=== PATIENT | female | born 1975 | race Caucasian/White ===

== ENCOUNTER 2017-02-27 11:30 | Emergency (ER) | payer OTHER ==
[~2017-02-27] VITALS: Ht 175.3 cm; Wt 87.9 kg
[~2017-02-27 11:30] MED LIST: ONDA4TAB7 PO
[2017-02-27] MEDS ORDERED: ALBUTEROL/IPRATROPIUM 2.5MG/0.5MG, 3 ML ONE ×2 (12:03)
[2017-02-27] MEDS: ALBUTEROL/IPRATROPIUM 2.5MG/0.5MG, 3 ML NPPB SCH ×2 (12:25→12:26)
[2017-02-27 15:12] VITALS: BP 121/67
== END 2017-02-27 15:14 | disposition home or self-care (01) ==
LOC: ED 14:43
DX: J45.909 Unspecified asthma, uncomplicated (principal); J20.8 Acute bronchitis due to other specified organisms
CPT/HCPCS: 71020; 94640; 99284; J7512; J7620

== ENCOUNTER 2017-05-05 11:50 | Emergency (ER) | payer OTHER ==
[~2017-05-05] VITALS: Ht 175.3 cm; Wt 89.0 kg
[2017-05-05 13:20] LABS: HEMATOCRIT 41.7 % (34.6-47.8); HEMOGLOBIN 14.3 g/dL (11.7-16.4); WHITE BLOOD COUNT 7.3 x10^3/uL (3.4-10)
[2017-05-05 13:32] LABS: BLOOD UREA NITROGEN 13 mg/dL (7-18)
[2017-05-05] MEDS ORDERED: ALBU2.5V11 NEB (13:35)
[2017-05-05 13:36] VITALS: BP 112/65
[2017-05-05 13:37] LABS: ASPARTATE AMINO TRANSFERASE 11 U/L (15-37)
== END 2017-05-05 14:25 | disposition home or self-care (01) ==
LOC: ED 14:15
DX: N93.8 Other specified abnormal uterine and vaginal bleeding (principal); N92.1 Excessive and frequent menstruation with irregular cycle; N92.4 Excessive bleeding in the premenopausal period
CPT/HCPCS: 36415; 76801; 80053; 81001; 84702; 85025; 86901; 99285

== ENCOUNTER 2018-11-05 08:08 | Emergency (ER) | payer OTHER ==
[~2018-11-05] VITALS: Ht 175.3 cm; Wt 90.0 kg
[~2018-11-05 08:08] MED LIST changes: +ALBU2.5V11 NEB
--- NOTE | 2018-11-05 08:19 | NUR ---
patient arrives to er wit multiple complaints. she has ad a migraine since yesterday, took amitriptaline and zofran and they didnt help. then, she has had nausea and vomiting and "peeing out of my butt" diarrea. placed on ISOLATION. gowned. in bed, on monitor. she is very unhappy, having hot flashes. pain head and back.
[2018-11-05] MEDS ORDERED: SODIUM CHLORIDE FLUSH 10ML SYR IVF ONE (08:30)
[2018-11-05] MEDS ORDERED: SODIUM CHLORIDE 0.9% 1,000ML IVBOLUS ONE (08:30)
[2018-11-05] MEDS ORDERED: KETOROLAC 30 MG/1 ML IVPush ONE (08:30)
[2018-11-05] MEDS ORDERED: PROCHLORPERAZINE 5 MG/ML, 2ML IVPush ONE (08:30)
[2018-11-05] MEDS ORDERED: DIPHENHYDRAMINE 50 MG/ML, 1ML IVPush ONE (08:30)
[2018-11-05] MEDS ORDERED: KETOROLAC 30 MG/1 ML ONE (08:50)
[2018-11-05] MEDS ORDERED: PROCHLORPERAZINE 5 MG/ML, 2ML ONE (08:50)
[2018-11-05] MEDS ORDERED: DIPHENHYDRAMINE 50 MG/ML, 1ML ONE (08:50)
--- NOTE | 2018-11-05 09:04 | NUR ---
sent bloodwork to lab labeled in her presence. patient in bed at bedside.
[2018-11-05 09:14] LABS: MEAN CORPUSCULAR HEMOGLOBIN 29.2 pg (27.0-34.8); MEAN CORPUSCULAR HGB CONC 33.2 g/dL (32.4-35.8); MEAN CORPUSCULAR VOLUME 87.9 fL (80-100); MEAN PLATELET VOLUME 8.6 fL (7.4-10.4); PLATELET COUNT 336 x10^3/uL (130-400); RED BLOOD COUNT 5.33 x10^6/uL (3.82-5.3); RED CELL DISTRIBUTION WIDTH 12.8 % (9.6-15.2)
[2018-11-05 09:25] LABS: ALANINE AMINOTRANSFERASE 34 U/L (12-78); ALBUMIN 3.9 g/dL (3.4-5.0); ANION GAP 8 mmol/L (5-15); CALCIUM 8.2 mg/dL (8.5-10.1); CHLORIDE 109 mmol/L (98-107)
[2018-11-05 09:29] LABS: ALKALINE PHOSPHATASE 80 U/L (45-117); BILIRUBIN,TOTAL 0.5 mg/dL (0.2-1.0)
[2018-11-05 09:33] LABS: BASOPHILS # (AUTO) 0.04 x10^3/uL (0-0.1); BASOPHILS % (AUTO) 0 % (0-1); EOSINOPHILS # (AUTO) 0.04 x10^3/uL (0-0.4); EOSINOPHILS % (AUTO) 0 % (1-7); LYMPHOCYTES # (AUTO) 0.44 x10^3/uL (1-3.4); LYMPHOCYTES % (AUTO) 3 % (22-44); MD SCAN; MONOCYTES # (AUTO) 0.78 x10^3/uL (0.2-0.8); MONOCYTES % (AUTO) 5 % (2-9); NEUTROPHILS # (AUTO) 12.96 x10^3/uL (1.8-6.8); NEUTROPHILS % (AUTO) 91 % (42-75)
--- NOTE | 2018-11-05 10:15 | NUR ---
patient awaiting er workup. some improvement from toradol. no vomiting noted. unable to stool
--- NOTE | 2018-11-05 10:58 | NUR ---
patient awaiting ct scan
--- NOTE | 2018-11-05 11:23 | NUR ---
got patient up for bathroom and ct here for scan. she is leaving after bathroom to go to ct with tech
[2018-11-05 12:23] VITALS: BP 132/78
--- NOTE | 2018-11-05 12:24 | NUR ---
dc teaching reviewed, shows understanding.
== END 2018-11-05 12:33 | disposition home or self-care (01) ==
LOC: ED 09:28
DX: R19.7 Diarrhea, unspecified (principal); R11.2 Nausea with vomiting, unspecified; J45.909 Unspecified asthma, uncomplicated; F32.9 Major depressive disorder, single episode, unspecified; Z79.899 Other long term (current) drug therapy; R51 Headache
CPT/HCPCS: 36415; 74177; 80053; 84703; 85025; 96361; 96374; 96375; 99284; J0780; J1200; J1885; J7030

== ENCOUNTER → 2018-11-18 | Outpatient (CLI) | payer OTHER ==
[~2018-11-18] MED LIST changes: +GADOBUTROL 10 MMOL/10 ML PFS ONE
== END | disposition home or self-care (01) ==
LOC: RAD 08:41
PROVIDERS: ATTEND Registered Nurse
DX: M50.10 Cervical disc disorder with radiculopathy, unspecified cervical region (principal); M47.22 Other spondylosis with radiculopathy, cervical region
CPT/HCPCS: 70553; 72156; A9585